=== PATIENT | female | born 1945 | race Two or more races ===

== ENCOUNTER 2018-11-29 08:16 | Outpatient (CLI) | payer OTHER | END 2018-11-29 08:24 | disposition home or self-care (01) | LOC: SONOGRAMA 08:16 | DX: C07 Malignant neoplasm of parotid gland (principal) ==

== ENCOUNTER 2022-05-22 08:41 | Outpatient (CLI) | payer OTHER | END 2022-05-22 08:46 | disposition home or self-care (01) | LOC: PPH VACUNA 08:41 | PROVIDERS: ATTEND Emergency Medicine Pediatric Emergency Medicine | DX: Z23 Encounter for immunization (principal) ==

== ENCOUNTER 2025-03-09 07:52 | Emergency (ER) | payer OTHER ==
[~2025-03-09] VITALS: Ht 162.6 cm; Wt 59.0 kg
[2025-03-09] MEDS ORDERED: ATORVASTATIN CA20 MG (08:19)
[2025-03-09] MEDS ORDERED: FUROSEMIDE20 MG (08:20)
[2025-03-09] MEDS ORDERED: CLONIDINE1 EAC1 (08:21)
[2025-03-09 08:55] LABS: BASO % 0.6 % (0.1-1.2); EOS # 0.18 (0.04-0.54); EOS % 3.7 % (0.7-7.0); LYMPH # 1.08 (1.18-3.74); LYMPH % 22.0 % (19.3-53.1); MEAN PLATELET VOLUME 11.70 fl (9.4-12.4); MONO # 0.54 (0.24-0.82); MONO % 11.0 % (4.7-12.5); NEUT # 3.07 (1.56-6.13); NEUT % 62.5 % (34.0-71.1); RED CELL DISTRIBUTION WIDTH 12.9 % (11.6-14.4)
[2025-03-09 09:42] LABS: BUN CREA RATIO 14.0 (7.0-25.0); CREATININE SERUM 1.07 mg/dL (0.55-1.02); GFR 49.59; GLUCOSE FASTING 144.0 mg/dL (65-100); OSMOLALITY SERUM 288.0 MOSM/KG (275-295)
[2025-03-09 10:34] LABS: URINE APPEARANCE Clear; URINE BILIRRUBIN Negative (NEGATIVE); URINE BLOOD Negative; URINE COLOR Yellow; URINE GLUCOSE Negative (NEGATIVE); URINE KETONE Negative (NEGATIVE); URINE LEUKOCYTE Negative; URINE NITRATE Negative; URINE PROTEIN Negative (NEGATIVE); URINE UROBILINOGEN 0.2 E.U./dl
[2025-03-09 10:36] LABS: URINE WBC 2.6 uL (0.0-23.2)
[2025-03-09 10:44] LABS: URINE BACTERIA > 9821.5 uL (0.0-1933); URINE CAST 1.31 uL (0.0-1.40); URINE EPITHELIAL CELLS 0.9 uL (0.0-38.8); URINE RBC 0.8 uL (0.0-20.8)
[2025-03-09 12:08] VITALS: BP 162/82; O2SAT 100
== END 2025-03-09 12:09 | disposition home or self-care (01) ==
LOC: ER 08:35
PROVIDERS: Emergency Medicine
DX: R55 Syncope and collapse (principal); I10 Essential (primary) hypertension